=== PATIENT | male | born 1980 | race Caucasian/White ===

== ENCOUNTER 2017-08-11 15:45 | Emergency (ER) | payer BC ==
[2017-08-11] MEDS: SOD CHLORIDE 0.9% 1,000 ML IV (17:34)
[2017-08-11] MEDS: ONDANSETRON 4 MG INJ IV (17:34)
[2017-08-11] MEDS: HYDROmorphONE 1 MG/5 ML IV SYRINGE IV ×2 (17:34→19:02)
[2017-08-11 17:47] LABS: ADD MAN DIFF? NO
[2017-08-11 17:50] LABS: BASOPHILS % 0.2 % (0.0-2.0); EOSINOPHILS # 0.1 10^3/ul (0.0-0.5); EOSINOPHILS % 1.8 % (0.0-7.0); HEMATOCRIT 42.5 % (42.0-52.0); HEMOGLOBIN 13.9 g/dl (14.0-18.0); LYMPHOCYTES # 1.9 10^3/ul (0.8-2.9); LYMPHOCYTES % 34.7 % (15.0-51.0); MEAN CORPUSCULAR HEMOGLOBIN 27.4 pg (29.0-33.0); MEAN CORPUSCULAR HGB CONC 32.7 g/dl (32.0-37.0); MEAN CORPUSCULAR VOLUME 83.7 fl (82.0-101.0); MEAN PLATELET VOLUME 11.6 fl (7.4-10.4); MONOCYTE # 0.4 10^3/ul (0.3-0.9); MONOCYTES % 7.2 % (0.0-11.0); NEUTROPHIL # 3.1 10^3/ul (1.6-7.5); NEUTROPHILS % 55.9 % (39.0-77.0); PLATELET COUNT 236 10^3/UL (140-415); RED BLOOD COUNT 5.08 10^6/ul (4.70-6.10); RED CELL DISTRIBUTION WIDTH 12.5 % (11.5-14.5)
[2017-08-11 17:50] LABS: WHITE BLOOD COUNT 5.6 10^3/ul (4.8-10.8)
[2017-08-11 17:56] LABS: ADD UMIC NO; UR ASCORBIC ACID NEGATIVE (NEGATIVE); UR BILIRUBIN (Dip) NEGATIVE (NEGATIVE); UR BLOOD (Dip) NEGATIVE (NEGATIVE); UR CLARITY CLEAR (CLEAR); UR COLOR YELLOW (YELLOW); UR GLUCOSE (Dip) NEGATIVE (NEGATIVE); UR KETONES (Dip) TRACE mg/dL (NEGATIVE); UR LEUKOCYTE ESTERASE (Dip) NEGATIVE Leu/ul (NEGATIVE); UR NITRITE (Dip) NEGATIVE (NEGATIVE); UR SPECIFIC GRAVITY (Dip) 1.029 (1.003-1.030); UR TOTAL PROTEIN (Dip) NEGATIVE (NEGATIVE); UR UROBILINOGEN (Dip) 1+ mg/dL (NEGATIVE)
[2017-08-11 18:17] LABS: ALANINE AMINOTRANSFERASE 31 IU/L (13-69); ALBUMIN 4.7 g/dl (3.3-4.9); ALBUMIN/GLOBULIN RATIO 1.27; ALKALINE PHOSPHATASE 72 IU/L (42-121); ANION GAP 17 (8-16); ASPARTATE AMINO TRANSFERASE 25 IU/L (15-46); BILIRUBIN,INDIRECT 0.8 mg/dl (0-1.1); BILIRUBIN,TOTAL 0.8 mg/dl (0.2-1.3); BLOOD UREA NITROGEN 8 mg/dl (7-20); CALCIUM 9.7 mg/dl (8.4-10.2); CARBON DIOXIDE 29 mmol/L (21-31); CHLORIDE 97 mmol/L (97-110); CREATININE 0.93 mg/dl (0.61-1.24); GLUCOSE 125 mg/dl (70-220); LIPASE 500 U/L (23-300); POTASSIUM 3.3 mmol/L (3.5-5.1); SODIUM 140 mmol/L (135-144); TOTAL PROTEIN 8.4 g/dl (6.1-8.1)
[2017-08-11] MEDS: ONDANSETRON (ODT) 4 MG TAB ODT (19:01)
== END 2017-08-11 19:29 | disposition home or self-care (01) ==
LOC: FTE 15:45
DX: K86.1 Other chronic pancreatitis (principal)
CPT/HCPCS: 36415; 74176; 80053; 81003; 83690; 85025; 96374; 96375; 96376; 99285-25

== ENCOUNTER 2017-08-17 17:30 | Emergency (ER) | payer BC ==
[2017-08-17] MEDS: SOD CHLORIDE 0.9% 1,000 ML IV (18:41)
[2017-08-17] MEDS: HYDROmorphONE 1 MG/5 ML IV SYRINGE IV (18:42)
[2017-08-17] MEDS ORDERED: ONDANSETRON 4 MG INJ (18:50)
[2017-08-17] MEDS: ONDANSETRON 4 MG INJ IV (18:53)
[2017-08-17 18:55] LABS: ADD MAN DIFF? NO
[2017-08-17 18:58] LABS: BASOPHILS % 0.2 % (0.0-2.0); EOSINOPHILS # 0.1 10^3/ul (0.0-0.5); EOSINOPHILS % 1.6 % (0.0-7.0); HEMATOCRIT 37.6 % (42.0-52.0); HEMOGLOBIN 12.4 g/dl (14.0-18.0); LYMPHOCYTES # 1.3 10^3/ul (0.8-2.9); LYMPHOCYTES % 31.1 % (15.0-51.0); MEAN CORPUSCULAR HEMOGLOBIN 27.6 pg (29.0-33.0); MEAN CORPUSCULAR VOLUME 83.7 fl (82.0-101.0); MEAN PLATELET VOLUME 10.9 fl (7.4-10.4); MONOCYTE # 0.3 10^3/ul (0.3-0.9); MONOCYTES % 7.7 % (0.0-11.0); NEUTROPHIL # 2.5 10^3/ul (1.6-7.5); NEUTROPHILS % 59.2 % (39.0-77.0); PLATELET COUNT 233 10^3/UL (140-415); RED BLOOD COUNT 4.49 10^6/ul (4.70-6.10); RED CELL DISTRIBUTION WIDTH 12.6 % (11.5-14.5)
[2017-08-17 18:58] LABS: WHITE BLOOD COUNT 4.3 10^3/ul (4.8-10.8)
[2017-08-17 19:21] LABS: INR 1.01; PROTIME 13.4 Sec (11.9-14.9)
[2017-08-17 19:22] LABS: PARTIAL THROMBOPLASTIN TIME 29.2 Sec (25.0-35.0)
[2017-08-17 19:27] LABS: ALANINE AMINOTRANSFERASE 27 IU/L (13-69); ALBUMIN/GLOBULIN RATIO 1.25; ALKALINE PHOSPHATASE 61 IU/L (42-121); AMYLASE 159 U/L (11-123); ANION GAP 13 (8-16); ASPARTATE AMINO TRANSFERASE 19 IU/L (15-46); BILIRUBIN,INDIRECT 0.2 mg/dl (0-1.1); BILIRUBIN,TOTAL 0.2 mg/dl (0.2-1.3); BLOOD UREA NITROGEN 10 mg/dl (7-20); CALCIUM 9.4 mg/dl (8.4-10.2); CARBON DIOXIDE 30 mmol/L (21-31); CHLORIDE 103 mmol/L (97-110); CREATININE 0.84 mg/dl (0.61-1.24); GLUCOSE 205 mg/dl (70-220); LIPASE 692 U/L (23-300); POTASSIUM 4.1 mmol/L (3.5-5.1); SODIUM 142 mmol/L (135-144); TOTAL PROTEIN 7.2 g/dl (6.1-8.1)
[2017-08-17 19:38] LABS: TROPONIN-I < 0.012 ng/ml (0.00-0.12)
[2017-08-17] MEDS: HYDROmorphONE 2 MG/ML SYG IV (20:07)
== END 2017-08-17 20:28 | disposition home or self-care (01) ==
LOC: FTE 20:28
DX: K85.90 Acute pancreatitis without necrosis or infection, unspecified (principal)
CPT/HCPCS: 76700; 80053; 82150; 83690; 84484; 85025; 85610; 85730; 93005; 96374; 96375; 96376; 99285-25

== ENCOUNTER 2017-08-20 18:56 | Emergency (ER) | payer BC ==
[2017-08-20 22:40] LABS: URINE BLOOD (Dip) POC Negative (NEGATIVE); URINE GLUCOSE (Dip) POC Negative (NEGATIVE); URINE KETONES (Dip) POC Trace (NEGATIVE); URINE LEUKOCYTE EST (Dip) POC Negative (NEGATIVE); URINE NITRITE (Dip) POC Negative (NEGATIVE); URINE TOTAL PROTEIN POC 1+ (NEGATIVE)
[2017-08-20 22:40] LABS: URINE PH (Dip) POC 6.5 (5.0-8.5)
[2017-08-20 22:50] LABS: ADD MAN DIFF? NO
[2017-08-20] MEDS: HYDROmorphONE 1 MG/5 ML IV SYRINGE IV ×2 (22:50→23:55)
[2017-08-20] MEDS: ONDANSETRON 4 MG INJ IV (22:50)
[2017-08-20 22:54] LABS: BASOPHILS % 0.2 % (0.0-2.0); EOSINOPHILS # 0.2 10^3/ul (0.0-0.5); EOSINOPHILS % 2.1 % (0.0-7.0); HEMATOCRIT 40.9 % (42.0-52.0); HEMOGLOBIN 13.3 g/dl (14.0-18.0); LYMPHOCYTES # 2.3 10^3/ul (0.8-2.9); LYMPHOCYTES % 28.6 % (15.0-51.0); MEAN CORPUSCULAR HEMOGLOBIN 27.3 pg (29.0-33.0); MEAN CORPUSCULAR HGB CONC 32.5 g/dl (32.0-37.0); MEAN PLATELET VOLUME 11.4 fl (7.4-10.4); MONOCYTE # 0.5 10^3/ul (0.3-0.9); MONOCYTES % 6.2 % (0.0-11.0); NEUTROPHIL # 5.1 10^3/ul (1.6-7.5); NEUTROPHILS % 62.7 % (39.0-77.0); PLATELET COUNT 283 10^3/UL (140-415); RED BLOOD COUNT 4.87 10^6/ul (4.70-6.10); RED CELL DISTRIBUTION WIDTH 12.6 % (11.5-14.5)
[2017-08-20 22:54] LABS: WHITE BLOOD COUNT 8.1 10^3/ul (4.8-10.8)
[2017-08-20 23:17] LABS: ALANINE AMINOTRANSFERASE 30 IU/L (13-69); ALBUMIN 4.4 g/dl (3.3-4.9); ALBUMIN/GLOBULIN RATIO 1.37; ALKALINE PHOSPHATASE 74 IU/L (42-121); ANION GAP 18 (8-16); ASPARTATE AMINO TRANSFERASE 23 IU/L (15-46); BILIRUBIN,INDIRECT 0.4 mg/dl (0-1.1); BILIRUBIN,TOTAL 0.4 mg/dl (0.2-1.3); BLOOD UREA NITROGEN 10 mg/dl (7-20); CALCIUM 9.6 mg/dl (8.4-10.2); CARBON DIOXIDE 30 mmol/L (21-31); CHLORIDE 96 mmol/L (97-110); CREATININE 1.01 mg/dl (0.61-1.24); GLUCOSE 147 mg/dl (70-220); POTASSIUM 3.5 mmol/L (3.5-5.1); SODIUM 140 mmol/L (135-144); TOTAL PROTEIN 7.6 g/dl (6.1-8.1)
[2017-08-20 23:19] LABS: ETHANOL < 10.0 mg/dl
[2017-08-20 23:48] LABS: LIPASE 3843 U/L (23-300)
== END 2017-08-21 01:15 | disposition left against medical advice (07) ==
LOC: E/R 08-21 01:15
DX: K85.90 Acute pancreatitis without necrosis or infection, unspecified (principal); D64.9 Anemia, unspecified; I25.10 Atherosclerotic heart disease of native coronary artery without angina pectoris; E11.9 Type 2 diabetes mellitus without complications; I10 Essential (primary) hypertension; Z98.61 Coronary angioplasty status
CPT/HCPCS: 36415; 80053; 80306; 81003; 83690; 85025; 96374; 96375; 96376; 99284-25

== ENCOUNTER 2017-08-21 22:28 | Inpatient (IN) | payer BC ==
[2017-08-21 23:18] LABS: ADD MAN DIFF? NO
[2017-08-21 23:21] LABS: BASOPHILS % 0.2 % (0.0-2.0); EOSINOPHILS # 0.1 10^3/ul (0.0-0.5); EOSINOPHILS % 2.2 % (0.0-7.0); HEMOGLOBIN 12.6 g/dl (14.0-18.0); LYMPHOCYTES # 1.3 10^3/ul (0.8-2.9); LYMPHOCYTES % 23.9 % (15.0-51.0); MEAN CORPUSCULAR HEMOGLOBIN 27.5 pg (29.0-33.0); MEAN CORPUSCULAR HGB CONC 33.2 g/dl (32.0-37.0); MEAN CORPUSCULAR VOLUME 82.8 fl (82.0-101.0); MEAN PLATELET VOLUME 10.7 fl (7.4-10.4); MONOCYTE # 0.4 10^3/ul (0.3-0.9); MONOCYTES % 7.8 % (0.0-11.0); NEUTROPHIL # 3.6 10^3/ul (1.6-7.5); NEUTROPHILS % 65.7 % (39.0-77.0); PLATELET COUNT 260 10^3/UL (140-415); RED BLOOD COUNT 4.59 10^6/ul (4.70-6.10); RED CELL DISTRIBUTION WIDTH 12.9 % (11.5-14.5)
[2017-08-21 23:21] LABS: WHITE BLOOD COUNT 5.5 10^3/ul (4.8-10.8)
[2017-08-21 23:42] LABS: ALANINE AMINOTRANSFERASE 31 IU/L (13-69); ALBUMIN 3.9 g/dl (3.3-4.9); ALBUMIN/GLOBULIN RATIO 1.21; ALKALINE PHOSPHATASE 68 IU/L (42-121); ANION GAP 11 (8-16); ASPARTATE AMINO TRANSFERASE 19 IU/L (15-46); BILIRUBIN,INDIRECT 0.5 mg/dl (0-1.1); BILIRUBIN,TOTAL 0.5 mg/dl (0.2-1.3); BLOOD UREA NITROGEN 8 mg/dl (7-20); CALCIUM 9.3 mg/dl (8.4-10.2); CARBON DIOXIDE 32 mmol/L (21-31); CHLORIDE 101 mmol/L (97-110); CREATININE 0.96 mg/dl (0.61-1.24); GLUCOSE 221 mg/dl (70-220); POTASSIUM 3.3 mmol/L (3.5-5.1); SODIUM 141 mmol/L (135-144); TOTAL PROTEIN 7.1 g/dl (6.1-8.1)
[2017-08-21 23:53] LABS: LIPASE 2864 U/L (23-300)
[2017-08-22] MEDS: HYDROmorphONE 1 MG/5 ML IV SYRINGE IV
[2017-08-22] MEDS: ONDANSETRON 4 MG INJ IV
[2017-08-22] MEDS: LACTATED RINGER'S 1,000 ML IV ×4 (01:58→15:39)
[2017-08-22] MEDS: POTASSIUM CHLORIDE 100 ML IVPB (01:58)
[2017-08-22] MEDS ORDERED: NACL 0.9% 3 ML SYG IV (02:00)
[2017-08-22] MEDS: HYDROmorphONE 0.5 MG/0.5 ML SYG IV ×7 (02:35→15:36)
[2017-08-22] MEDS ORDERED: GLUCOSE GEL 15 GRAM TUBE BUCCAL (04:30)
[2017-08-22] MEDS ORDERED: GLUCAGON 1 MG INJ IM (04:30)
[2017-08-22] MEDS ORDERED: DEXTROSE 50% 50 ML SYRINGE IV ×2 (04:30)
[2017-08-22] MEDS ORDERED: GLUCOSE GEL 15 GRAM TUBE PO ×2 (04:30)
[2017-08-22] MEDS: INSULIN ASPART [NOVOLOG] 3 ML PEN SC ×3 (08:00→17:08)
[2017-08-22] MEDS: INSULIN GLARGINE [LANtus] 3 ML PEN SC (08:00)
[2017-08-22] MEDS: ENOXAPARIN 40 MG/0.4 ML SYG SC (08:48)
[2017-08-22] MEDS: FAMOTIDINE 20 MG TAB PO (08:49)
[2017-08-22] MEDS: LABETALOL 100 MG TAB PO ×2 (08:50→13:17)
[2017-08-22 15:12] LABS: LIPASE 1049 U/L (23-300)
[2017-08-23] MEDS ORDERED: ACCU-CHEK XX (02:00)
== END 2017-08-22 17:10 | disposition home or self-care (01) | DRG 440 ==
LOC: PP2 08-22 01:15 → E/R 22:28
DX: K86.1 Other chronic pancreatitis (principal); E87.6 Hypokalemia; D64.9 Anemia, unspecified; I10 Essential (primary) hypertension; E11.9 Type 2 diabetes mellitus without complications; Z79.4 Long term (current) use of insulin; Z87.891 Personal history of nicotine dependence
CPT/HCPCS: 36415; 80053; 82962; 83690; 85025; 96374; 96375; 99285-25

== ENCOUNTER 2017-10-02 13:35 | Emergency (ER) | payer BC ==
[2017-10-02] MEDS: SOD CHLORIDE 0.9% 1,000 ML IV (14:02)
[2017-10-02] MEDS: ONDANSETRON 4 MG INJ IV (14:02)
[2017-10-02] MEDS: HYDROmorphONE 1 MG/ML SYG IV (14:03)
[2017-10-02 14:09] LABS: ADD MAN DIFF? NO
[2017-10-02 14:11] LABS: WHITE BLOOD COUNT 6.9 10^3/ul (4.8-10.8)
[2017-10-02 14:11] LABS: BASOPHILS % 0.1 % (0.0-2.0); EOSINOPHILS # 0.1 10^3/ul (0.0-0.5); EOSINOPHILS % 1.6 % (0.0-7.0); HEMATOCRIT 40.7 % (42.0-52.0); HEMOGLOBIN 13.3 g/dl (14.0-18.0); LYMPHOCYTES # 1.5 10^3/ul (0.8-2.9); LYMPHOCYTES % 21.8 % (15.0-51.0); MEAN CORPUSCULAR HEMOGLOBIN 27.3 pg (29.0-33.0); MEAN CORPUSCULAR HGB CONC 32.7 g/dl (32.0-37.0); MEAN CORPUSCULAR VOLUME 83.6 fl (82.0-101.0); MEAN PLATELET VOLUME 10.6 fl (7.4-10.4); MONOCYTE # 0.4 10^3/ul (0.3-0.9); MONOCYTES % 6.1 % (0.0-11.0); NEUTROPHIL # 4.9 10^3/ul (1.6-7.5); NEUTROPHILS % 70.3 % (39.0-77.0); PLATELET COUNT 239 10^3/UL (140-415); RED BLOOD COUNT 4.87 10^6/ul (4.70-6.10); RED CELL DISTRIBUTION WIDTH 13.3 % (11.5-14.5)
[2017-10-02 14:18] LABS: ADD UMIC YES; UR ASCORBIC ACID NEGATIVE (NEGATIVE); UR BILIRUBIN (Dip) NEGATIVE (NEGATIVE); UR BLOOD (Dip) NEGATIVE (NEGATIVE); UR CLARITY CLEAR (CLEAR); UR COLOR YELLOW (YELLOW); UR GLUCOSE (Dip) 1+ mg/dL (NEGATIVE); UR KETONES (Dip) TRACE mg/dL (NEGATIVE); UR LEUKOCYTE ESTERASE (Dip) NEGATIVE Leu/ul (NEGATIVE); UR MUCUS FEW /HPF (NONE SEEN); UR NITRITE (Dip) NEGATIVE (NEGATIVE); UR RBC 0 /HPF (0-5); UR SPECIFIC GRAVITY (Dip) 1.031 (1.003-1.030); UR TOTAL PROTEIN (Dip) 1+ mg/dl (NEGATIVE); UR UROBILINOGEN (Dip) 1+ mg/dL (NEGATIVE); UR WBC 2 /HPF (0-5)
[2017-10-02 14:30] LABS: ALANINE AMINOTRANSFERASE 32 IU/L (13-69); ALBUMIN 4.5 g/dl (3.3-4.9); ALBUMIN/GLOBULIN RATIO 1.36; ALKALINE PHOSPHATASE 69 IU/L (42-121); ANION GAP 11 (8-16); ASPARTATE AMINO TRANSFERASE 23 IU/L (15-46); BILIRUBIN,INDIRECT 0.9 mg/dl (0-1.1); BILIRUBIN,TOTAL 0.9 mg/dl (0.2-1.3); BLOOD UREA NITROGEN 12 mg/dl (7-20); CALCIUM 9.2 mg/dl (8.4-10.2); CARBON DIOXIDE 30 mmol/L (21-31); CHLORIDE 101 mmol/L (97-110); CREATININE 0.94 mg/dl (0.61-1.24); GLUCOSE 228 mg/dl (70-220); LIPASE 325 U/L (23-300); POTASSIUM 3.8 mmol/L (3.5-5.1); SODIUM 138 mmol/L (135-144); TOTAL PROTEIN 7.8 g/dl (6.1-8.1)
[2017-10-02] MEDS: HYDROmorphONE 0.5 MG/0.5 ML SYG IV (15:05)
== END 2017-10-02 16:09 | disposition home or self-care (01) ==
LOC: FTE 16:09
DX: K86.0 Alcohol-induced chronic pancreatitis (principal); I10 Essential (primary) hypertension; Z98.61 Coronary angioplasty status
CPT/HCPCS: 36415; 80053; 81001; 82962; 83690; 85025; 96374; 96375; 96376; 99284-25

== ENCOUNTER 2017-11-02 12:03 | Emergency (ER) | payer BC ==
[2017-11-02] MEDS: HYDROmorphONE 1 MG/ML SYG IV ×2 (14:11→15:35)
[2017-11-02] MEDS: ONDANSETRON 4 MG INJ IV (14:11)
[2017-11-02] MEDS: SOD CHLORIDE 0.9% 1,000 ML IV (14:12)
[2017-11-02 14:13] LABS: WHITE BLOOD COUNT 4.2 10^3/ul (4.8-10.8)
[2017-11-02 14:13] LABS: HEMATOCRIT 42.7 % (42.0-52.0); HEMOGLOBIN 13.9 g/dl (14.0-18.0); MEAN CORPUSCULAR HEMOGLOBIN 27.3 pg (29.0-33.0); MEAN CORPUSCULAR HGB CONC 32.6 g/dl (32.0-37.0); MEAN CORPUSCULAR VOLUME 83.9 fl (82.0-101.0); MEAN PLATELET VOLUME 11.2 fl (7.4-10.4); PLATELET COUNT 229 10^3/UL (140-415); POSITIVE DIFF @See below; RED BLOOD COUNT 5.09 10^6/ul (4.70-6.10); RED CELL DISTRIBUTION WIDTH 13.2 % (11.5-14.5)
[2017-11-02 14:14] LABS: ADD MAN DIFF? YES
[2017-11-02 14:25] LABS: ALANINE AMINOTRANSFERASE 40 IU/L (13-69); ALBUMIN/GLOBULIN RATIO 1.51; ALKALINE PHOSPHATASE 63 IU/L (42-121); ANION GAP 14 (8-16); ASPARTATE AMINO TRANSFERASE 30 IU/L (15-46); BILIRUBIN,INDIRECT 0.6 mg/dl (0-1.1); BILIRUBIN,TOTAL 0.6 mg/dl (0.2-1.3); BLOOD UREA NITROGEN 9 mg/dl (7-20); CALCIUM 9.8 mg/dl (8.4-10.2); CARBON DIOXIDE 26 mmol/L (21-31); CHLORIDE 105 mmol/L (97-110); GLUCOSE 155 mg/dl (70-220); LIPASE 540 U/L (23-300); POTASSIUM 4.1 mmol/L (3.5-5.1); SODIUM 141 mmol/L (135-144); TOTAL PROTEIN 8.3 g/dl (6.1-8.1)
[2017-11-02 14:40] LABS: BASOPHILS % (M) 1 % (0-2); EOSINOPHILS % (M) 1 % (0-7); LYMPHOCYTES #M 1.7 10^3/ul (0.8-2.9); LYMPHOCYTES % (M) 42 % (15-51); MONOCYTE #M 0.4 10^3/ul (0.3-0.9); MONOCYTES % (M) 11 % (0-11); PLATELET ESTIMATE NORMAL; REACTIVE LYMPHOCYTES% (M) 2 % (0-0); SEGMENTED NEUTROPHILS (M) % 43 % (39-77); SMUDGE%M 21 % (0-0)
[2017-11-02] MEDS ORDERED: HYDROmorphONE 0.5 MG/0.5 ML SYG IM (14:55)
== END 2017-11-02 16:40 | disposition home or self-care (01) ==
LOC: FTE 12:03
DX: K86.1 Other chronic pancreatitis (principal); I10 Essential (primary) hypertension; Z98.61 Coronary angioplasty status
CPT/HCPCS: 36415; 80053; 83690; 85025; 96374; 96375; 96376; 99284-25

== ENCOUNTER 2017-12-01 18:20 | Emergency (ER) | payer SELFPAY, BC | END 2017-12-01 20:26 | disposition left against medical advice (07) | LOC: FTE 20:26 | DX: Z53.21 Procedure and treatment not carried out due to patient leaving prior to being seen by health care provider (principal) ==

== ENCOUNTER 2017-12-02 14:16 | Emergency (ER) | payer BC ==
[2017-12-02] MEDS: HYDROmorphONE 1 MG/ML SYG IV (16:08)
[2017-12-02] MEDS: LACTATED RINGER'S 1,000 ML IV (16:09)
[2017-12-02] MEDS: ONDANSETRON 4 MG INJ IV (16:09)
[2017-12-02] MEDS: FAMOTIDINE 20 MG INJ IV (16:09)
[2017-12-02 16:37] LABS: ADD MAN DIFF? NO
[2017-12-02 16:42] LABS: WHITE BLOOD COUNT 4.8 10^3/ul (4.8-10.8)
[2017-12-02 16:42] LABS: BASOPHILS % 0.4 % (0.0-2.0); EOSINOPHILS # 0.1 10^3/ul (0.0-0.5); EOSINOPHILS % 2.3 % (0.0-7.0); HEMATOCRIT 45.3 % (42.0-52.0); HEMOGLOBIN 14.6 g/dl (14.0-18.0); LYMPHOCYTES # 2.4 10^3/ul (0.8-2.9); LYMPHOCYTES % 50.7 % (15.0-51.0); MEAN CORPUSCULAR HEMOGLOBIN 27.4 pg (29.0-33.0); MEAN CORPUSCULAR HGB CONC 32.2 g/dl (32.0-37.0); MEAN CORPUSCULAR VOLUME 85.2 fl (82.0-101.0); MEAN PLATELET VOLUME 12.3 fl (7.4-10.4); MONOCYTE # 0.5 10^3/ul (0.3-0.9); MONOCYTES % 10.7 % (0.0-11.0); NEUTROPHIL # 1.7 10^3/ul (1.6-7.5); NEUTROPHILS % 35.7 % (39.0-77.0); PLATELET COUNT 250 10^3/UL (140-415); RED BLOOD COUNT 5.32 10^6/ul (4.70-6.10); RED CELL DISTRIBUTION WIDTH 13.2 % (11.5-14.5)
[2017-12-02 16:54] LABS: ADD UMIC NO; UR ASCORBIC ACID NEGATIVE (NEGATIVE); UR BILIRUBIN (Dip) NEGATIVE (NEGATIVE); UR BLOOD (Dip) NEGATIVE (NEGATIVE); UR CLARITY CLEAR (CLEAR); UR COLOR YELLOW (YELLOW); UR GLUCOSE (Dip) NEGATIVE (NEGATIVE); UR KETONES (Dip) TRACE mg/dL (NEGATIVE); UR LEUKOCYTE ESTERASE (Dip) NEGATIVE Leu/ul (NEGATIVE); UR NITRITE (Dip) NEGATIVE (NEGATIVE); UR SPECIFIC GRAVITY (Dip) 1.024 (1.003-1.030); UR TOTAL PROTEIN (Dip) NEGATIVE (NEGATIVE); UR UROBILINOGEN (Dip) 2+ mg/dL (NEGATIVE)
[2017-12-02 16:59] LABS: ALANINE AMINOTRANSFERASE 40 IU/L (13-69); ALBUMIN 5.2 g/dl (3.3-4.9); ALBUMIN/GLOBULIN RATIO 1.26; ALKALINE PHOSPHATASE 62 IU/L (42-121); ANION GAP 16 (8-16); ASPARTATE AMINO TRANSFERASE 51 IU/L (15-46); BLOOD UREA NITROGEN 12 mg/dl (7-20); CALCIUM 9.9 mg/dl (8.4-10.2); CARBON DIOXIDE 29 mmol/L (21-31); CHLORIDE 99 mmol/L (97-110); CREATININE 0.94 mg/dl (0.61-1.24); GLUCOSE 71 mg/dl (70-220); LIPASE 138 U/L (23-300); POTASSIUM 4.3 mmol/L (3.5-5.1); SODIUM 140 mmol/L (135-144); TOTAL PROTEIN 9.3 g/dl (6.1-8.1)
[2017-12-02 17:08] LABS: TROPONIN-I 0.021 ng/ml (0.000-0.120)
== END 2017-12-02 18:00 | disposition home or self-care (01) ==
LOC: FTE 14:16
DX: K86.1 Other chronic pancreatitis (principal); I10 Essential (primary) hypertension; E11.9 Type 2 diabetes mellitus without complications; Z98.61 Coronary angioplasty status
CPT/HCPCS: 36415; 74176; 80053; 81003; 83690; 84484; 85025; 93005; 96374; 96375; 99285-25

== ENCOUNTER 2018-02-24 07:04 | Emergency (ER) | payer BC ==
[2018-02-24] MEDS: HYDROmorphONE 0.5 MG/0.5 ML SYG IV (07:39)
[2018-02-24 07:50] LABS: ADD MAN DIFF? NO
[2018-02-24 07:56] LABS: BASOPHILS % 0.4 % (0.0-2.0); EOSINOPHILS # 0.1 10^3/ul (0.0-0.5); EOSINOPHILS % 2.9 % (0.0-7.0); HEMATOCRIT 44.3 % (42.0-52.0); HEMOGLOBIN 14.6 g/dl (14.0-18.0); LYMPHOCYTES # 1.7 10^3/ul (0.8-2.9); LYMPHOCYTES % 38.4 % (15.0-51.0); MEAN CORPUSCULAR HEMOGLOBIN 27.4 pg (29.0-33.0); MEAN CORPUSCULAR VOLUME 83.1 fl (82.0-101.0); MONOCYTE # 0.4 10^3/ul (0.3-0.9); MONOCYTES % 9.2 % (0.0-11.0); NEUTROPHIL # 2.2 10^3/ul (1.6-7.5); NEUTROPHILS % 48.9 % (39.0-77.0); PLATELET COUNT 259 10^3/UL (140-415); RED BLOOD COUNT 5.33 10^6/ul (4.70-6.10); RED CELL DISTRIBUTION WIDTH 12.1 % (11.5-14.5)
[2018-02-24 07:56] LABS: WHITE BLOOD COUNT 4.5 10^3/ul (4.8-10.8)
[2018-02-24 08:08] LABS: ADD UMIC YES; UR ASCORBIC ACID NEGATIVE (NEGATIVE); UR BILIRUBIN (Dip) NEGATIVE (NEGATIVE); UR BLOOD (Dip) NEGATIVE (NEGATIVE); UR CLARITY CLEAR (CLEAR); UR COLOR YELLOW (YELLOW); UR GLUCOSE (Dip) 3+ mg/dL (NEGATIVE); UR KETONES (Dip) TRACE mg/dL (NEGATIVE); UR LEUKOCYTE ESTERASE (Dip) NEGATIVE Leu/ul (NEGATIVE); UR NITRITE (Dip) NEGATIVE (NEGATIVE); UR RBC 0 /HPF (0-5); UR SPECIFIC GRAVITY (Dip) 1.039 (1.003-1.030); UR TOTAL PROTEIN (Dip) 1+ mg/dl (NEGATIVE); UR UROBILINOGEN (Dip) 2+ mg/dL (NEGATIVE); UR WBC 1 /HPF (0-5)
[2018-02-24 08:14] LABS: ALANINE AMINOTRANSFERASE 27 IU/L (13-69); ALBUMIN 4.8 g/dl (3.3-4.9); ALBUMIN/GLOBULIN RATIO 1.33; ALKALINE PHOSPHATASE 66 IU/L (42-121); ANION GAP 11 (5-13); ASPARTATE AMINO TRANSFERASE 25 IU/L (15-46); BILIRUBIN,INDIRECT 0.6 mg/dl (0-1.1); BILIRUBIN,TOTAL 0.6 mg/dl (0.2-1.3); BLOOD UREA NITROGEN 15 mg/dl (7-20); CALCIUM 9.6 mg/dl (8.4-10.2); CARBON DIOXIDE 26 mmol/L (21-31); CHLORIDE 102 mmol/L (97-110); CREATININE 0.87 mg/dl (0.61-1.24); Estimated GFR > 60 mL/min (>60); GLUCOSE 226 mg/dl (70-220); LIPASE 224 U/L (23-300); SODIUM 139 mmol/L (135-144); TOTAL PROTEIN 8.4 g/dl (6.1-8.1)
== END 2018-02-24 08:40 | disposition home or self-care (01) ==
LOC: FTE 07:04
DX: G89.4 Chronic pain syndrome (principal); I10 Essential (primary) hypertension; E11.9 Type 2 diabetes mellitus without complications; Z98.61 Coronary angioplasty status
CPT/HCPCS: 36415; 80053; 81001; 83690; 85025; 96374; 99284-25

== ENCOUNTER 2018-04-13 16:35 | Emergency (ER) | payer BC ==
[2018-04-13] MEDS ORDERED: morphine 4 MG/ML VIAL IV (17:23)
[2018-04-13] MEDS: SOD CHLORIDE 0.9% 1,000 ML IV (17:46)
[2018-04-13 17:47] LABS: ADD MAN DIFF? NO
[2018-04-13 17:51] LABS: WHITE BLOOD COUNT 8.6 10^3/ul (4.8-10.8)
[2018-04-13 17:51] LABS: BASOPHILS % 0.2 % (0.0-2.0); EOSINOPHILS # 0.1 10^3/ul (0.0-0.5); EOSINOPHILS % 0.9 % (0.0-7.0); HEMATOCRIT 40.7 % (42.0-52.0); HEMOGLOBIN 12.9 g/dl (14.0-18.0); LYMPHOCYTES % 11.9 % (15.0-51.0); MEAN CORPUSCULAR HEMOGLOBIN 27.3 pg (29.0-33.0); MEAN CORPUSCULAR HGB CONC 31.7 g/dl (32.0-37.0); MEAN PLATELET VOLUME 10.7 fl (7.4-10.4); MONOCYTE # 0.5 10^3/ul (0.3-0.9); MONOCYTES % 5.9 % (0.0-11.0); PLATELET COUNT 243 10^3/UL (140-415); RED BLOOD COUNT 4.73 10^6/ul (4.70-6.10); RED CELL DISTRIBUTION WIDTH 12.2 % (11.5-14.5)
[2018-04-13] MEDS: ONDANSETRON 4 MG INJ IV (18:06)
[2018-04-13] MEDS: HYDROmorphONE 0.5 MG/0.5 ML SYG IV ×2 (18:06→19:19)
[2018-04-13 18:09] LABS: ALANINE AMINOTRANSFERASE 28 IU/L (13-69); ALBUMIN 4.3 g/dl (3.3-4.9); ALBUMIN/GLOBULIN RATIO 1.34; ALKALINE PHOSPHATASE 77 IU/L (42-121); ANION GAP 10 (5-13); ASPARTATE AMINO TRANSFERASE 28 IU/L (15-46); BILIRUBIN,INDIRECT 0.5 mg/dl (0-1.1); BILIRUBIN,TOTAL 0.5 mg/dl (0.2-1.3); BLOOD UREA NITROGEN 11 mg/dl (7-20); CALCIUM 9.4 mg/dl (8.4-10.2); CARBON DIOXIDE 31 mmol/L (21-31); CHLORIDE 98 mmol/L (97-110); CREATININE 0.97 mg/dl (0.61-1.24); Estimated GFR > 60 mL/min (>60); GLUCOSE 171 mg/dl (70-220); LIPASE 386 U/L (23-300); SODIUM 139 mmol/L (135-144); TOTAL PROTEIN 7.5 g/dl (6.1-8.1)
== END 2018-04-13 19:44 | disposition home or self-care (01) ==
LOC: FTE 16:35
DX: R10.13 Epigastric pain (principal); I10 Essential (primary) hypertension; E11.9 Type 2 diabetes mellitus without complications; Z98.61 Coronary angioplasty status
CPT/HCPCS: 36415; 74018; 80053; 83690; 85025; 96361; 96374; 96375; 99284-25

== ENCOUNTER 2018-06-21 14:47 | Emergency (ER) | payer BC ==
[2018-06-21] MEDS: ONDANSETRON 4 MG INJ IV (17:03)
[2018-06-21] MEDS: morphine 4 MG/ML VIAL IV (17:03)
[2018-06-21] MEDS: SOD CHLORIDE 0.9% 1,000 ML IV (17:03)
[2018-06-21 17:15] LABS: ADD MAN DIFF? NO
[2018-06-21 17:18] LABS: BASOPHILS % 0.5 % (0.0-2.0); EOSINOPHILS # 0.1 10^3/ul (0.0-0.5); HEMATOCRIT 41.5 % (42.0-52.0); HEMOGLOBIN 13.5 g/dl (14.0-18.0); LYMPHOCYTES # 1.4 10^3/ul (0.8-2.9); LYMPHOCYTES % 36.6 % (15.0-51.0); MEAN CORPUSCULAR HEMOGLOBIN 27.9 pg (29.0-33.0); MEAN CORPUSCULAR HGB CONC 32.5 g/dl (32.0-37.0); MEAN CORPUSCULAR VOLUME 85.7 fl (82.0-101.0); MEAN PLATELET VOLUME 11.7 fl (7.4-10.4); MONOCYTE # 0.5 10^3/ul (0.3-0.9); NEUTROPHIL # 1.9 10^3/ul (1.6-7.5); NEUTROPHILS % 47.6 % (39.0-77.0); PLATELET COUNT 221 10^3/UL (140-415); RED BLOOD COUNT 4.84 10^6/ul (4.70-6.10); RED CELL DISTRIBUTION WIDTH 13.2 % (11.5-14.5)
[2018-06-21 17:18] LABS: WHITE BLOOD COUNT 3.9 10^3/ul (4.8-10.8)
[2018-06-21 17:39] LABS: ALANINE AMINOTRANSFERASE 30 IU/L (13-69); ALBUMIN 4.5 g/dl (3.3-4.9); ALKALINE PHOSPHATASE 73 IU/L (42-121); ANION GAP 9 (5-13); ASPARTATE AMINO TRANSFERASE 39 IU/L (15-46); BILIRUBIN,INDIRECT 0.5 mg/dl (0-1.1); BILIRUBIN,TOTAL 0.5 mg/dl (0.2-1.3); BLOOD UREA NITROGEN 11 mg/dl (7-20); CALCIUM 9.3 mg/dl (8.4-10.2); CARBON DIOXIDE 32 mmol/L (21-31); CHLORIDE 98 mmol/L (97-110); CREATININE 1.21 mg/dl (0.61-1.24); Estimated GFR > 60 mL/min (>60); GLUCOSE 157 mg/dl (70-220); LIPASE 208 U/L (23-300); POTASSIUM 3.5 mmol/L (3.5-5.1); SODIUM 139 mmol/L (135-144); TOTAL PROTEIN 7.7 g/dl (6.1-8.1)
== END 2018-06-21 18:54 | disposition home or self-care (01) ==
LOC: FTE 18:54
DX: R10.12 Left upper quadrant pain (principal); E11.9 Type 2 diabetes mellitus without complications; I10 Essential (primary) hypertension; Z98.61 Coronary angioplasty status
CPT/HCPCS: 36415; 80053; 83690; 85025; 96361; 96374; 96375; 99284-25

== ENCOUNTER 2018-11-18 16:06 | Emergency (ER) | payer SELFPAY, BC | END 2018-11-18 18:26 | disposition left against medical advice (07) | LOC: FTE 18:26 | DX: Z53.21 Procedure and treatment not carried out due to patient leaving prior to being seen by health care provider (principal) ==

== ENCOUNTER 2019-01-11 11:11 | Emergency (ER) | payer BC ==
[2019-01-11] MEDS: ONDANSETRON 4 MG INJ IV (14:15)
[2019-01-11] MEDS: SOD CHLORIDE 0.9% 1,000 ML IV (14:15)
[2019-01-11] MEDS: KETOROLAC 30 MG INJ IV (14:15)
== END 2019-01-11 14:59 | disposition home or self-care (01) ==
LOC: FTE 14:59
DX: R10.13 Epigastric pain (principal); I10 Essential (primary) hypertension; E11.9 Type 2 diabetes mellitus without complications
CPT/HCPCS: 36415; 76705; 80053; 81001; 83690; 85025; 96374; 96375; 99285-25